=== PATIENT | female | born 1960 | race Caucasian/White ===

== ENCOUNTER 2019-02-27 17:20 | Emergency (ER) | payer OTHER ==
[~2019-02-27] VITALS: Ht 162.6 cm; Wt 65.8 kg
--- NOTE | ~2019-02-27 | EMS ---
[address] [address] EMS Patient Care Report Name: NAHID MAY Room #: DEP HOWIE Jacob#: [id number] Admission: 02/27/19 Attend Phys: Discharge: 02/27/19 Date of : 56 Report #: [id number] THIS REPORT FOR: //name// Report Transmitted: 02/27/2019 22:51 EMS Care Summary [facility] Incident [id number] @ 02/27/2019 16:30 Incident Location [address] [place] [address] Patient NAHID MAY Female, 58 Years 1960 Patient Address [address] [place] [address] Patient History Anxiety Disorder (Panic Attacks),Bipolar II Disorder,Alcohol Abuse, Patient Allergies Codeine, Patient Medications Fluoxetine, Zolpidem, Amitriptyline, Chief Complaint Left upper quadrant pain Disposition Transported No Lights/[place] Reason Breathing Problem Transported To [facility] Narrative Pt found lying supine in an upstairs bed room with an elevated level of anxiety and hyperventilating. Pt states "I have this really tight muscle cramping just under my left rib cage. I think I over did doing house cleaning over the past couple days. The pain is increased whenever I take deep breath and when I try [address] [address] EMS Patient Care Report Name: NAHID MAY Room #: DEP ER Cecil#: [id number] Admission: 02/27/19 Attend Phys: Discharge: 02/27/19 Date of : 56 Report #: [id number] to move around to much. The pain is 10/10 when I take a deep breath and move. If I just lie still and don't breathe to deeply its a 6/10." Pt denies any vomiting but has had a intermittent nausea. Pt was assisted to ambulance cot and secured with seat belts. Pt moved to the ambulance without incident. Alerted hospital on [employer] system homicide squad captain delivered pt with decreased pain and anxiety to ER. Pt was 2 person sheet lifted to Hospital bed and secured with side rails in the upright position. Gave report to RN transferred care and pt to hospital staff. Initial Vitals @16:59P: 98,R: 18,BP: 149/96,Pain: 4/10,GCS: 15,SpO2: 95,Revised Trauma: 12, @16:58P: 99,R: 18,BP: 152/98,GCS: 15,Revised Trauma: 12, @16:39P: 100,R: 32,BP: 157/102,Pain: 10/10,GCS: 15,SpO2: 97,Revised Trauma: 11,[place] Suspected: false @16:50R: 28,BP: 156/101,Pain: 8/10,GCS: 15,Glucose: 100,SpO2: 98,Revised Trauma: 12, @16:45P: 95,R: 28,BP: 156/102,Pain: 8/10,GCS: 15,SpO2: 98,Revised Trauma: 12,[place] Suspected: false Assessments @16:42MENTAL:No Abnormalities,SKIN:No Abnormalities,HEENT:Head/Face: No Abnormalities,Eyes: No Abnormalities,Neck/Airway: No Abnormalities,LUNG SOUNDS:General: No Abnormalities,Left Upper: No Abnormalities,Right Upper: No Abnormalities,Left Lower: No Abnormalities,Right Lower: No Abnormalities,ABDOMEN:General: No Abnormalities,Left Upper: No Abnormalities,Right Upper: No Abnormalities,Left Lower: No Abnormalities,Right Lower: No Abnormalities,PELVIS//GI:No Abnormalities,EXTREMITIES:Left Arm: No Abnormalities,Right Arm: No Abnormalities,Left Leg: No Abnormalities,Right Leg: No Abnormalities,PULSE:NEURO:No Abnormalities, Impression Abdominal Pain Procedures @16:58Saline Lock 10cc (20 ga) Site: Hand-RightResponse: UnchangedSucceeded@16:4512-Lead ECGResponse: UnchangedSucceeded@17:05Fentanyl - 50 Micrograms (mcg) - Intravenous (IV)Response: Improved Timeline 16:29,Call Received 16:29,Psap Call 16:30,Dispatched 16:30,En Route 16:37,On Scene 16:39,At Patient [address] [address] EMS Patient Care Report Name: NAHID MAY Room #: DEP HOWIE Jacob#: [id number] Admission: 02/27/19 Attend Phys: Discharge: 02/27/19 Date of : 56 Report #: [id number] 16:39,BP: 157/102 M,PULSE: 100,RR: 32 R,SPO2: 97 Ox,ETCO2: ,BG: ,PAIN: 10,GCS: 15, 16:45,12-Lead ECG,Response: UnchangedSucceeded, 16:45,BP: 156/102 M,PULSE: 95,RR: 28 R,SPO2: 98 Ox,ETCO2: ,BG: ,PAIN: 8,GCS: 15, 16:50,BP: 156/101 M,PULSE: ,RR: 28 R,SPO2: 98 Ox,ETCO2: ,B,PAIN: 8,GCS: 15, 16:58,Saline Lock 10cc 20 ga Site: Hand-Right,Response: UnchangedSucceeded, 16:58,BP: 152/98 M,PULSE: 99,RR: 18 R,SPO2: Ox,ETCO2: ,BG: ,PAIN: ,GCS: 15, 16:59,BP: 149/96 M,PULSE: 98,RR: 18 R,SPO2: 95 Ox,ETCO2: ,BG: ,PAIN: 4,GCS: 15, 17:05,Fentanyl - 50 Micrograms (mcg) - Intravenous (IV),Response: Improved 17:05,Depart Scene 17:13,At Destination 17:34,Call Closed Disclaimer v1.1 Copyright 2019 [employer] This EMS Care Summary contains data elements from the applicable legal record (which may be displayed differently). It is designed to provide pertinent information for the following purposes: continuity of care, clinical quality, and state data reporting. The complete legal record is available to ED staff and administrators of the receiving hospital in ES's Patient Tracker. All data is provided "as is."
[2019-02-27 18:24] LABS: ABSOLUTE NEUTROPHILS 4.2 thou/uL (1.4-8.2); BASOPHILS 1.2 % (0.0-2.0); EOSINOPHILS 2.1 % (0.0-3.0); HEMATOCRIT 32.7 % (37.0-47.0); HEMOGLOBIN 11.1 gm/dL (12.0-15.0); LYMPHOCYTES 25.8 % (24.0-44.0); MCH 32.3 pg (26.0-34.0); MCHC 34.1 g/dL (28.0-37.0); MCV 94.9 fL (80.0-100.0); MONOCYTES 7.4 % (1.0-8.0); PLATELET COUNT 312 thou/uL (150-400); POLYS 63.5 % (36.0-66.0); RBC 3.45 mil/uL (4.20-5.00); RDW 13.7 % (10.5-14.5); WBC 6.6 thou/uL (4.0-11.0)
[2019-02-27 18:35] LABS: ANION GAP 14 mmol/L (7-16); BUN 14 mg/dL (7-18); CALCIUM 8.4 mg/dL (8.5-10.1); CHLORIDE 108 mmol/L (98-107); CO2 21 mmol/L (21-32); CREATININE 0.9 mg/dL (0.6-1.0); GLUCOSE 98 mg/dL (74-106); POTASSIUM 3.7 mmol/L (3.5-5.1); SODIUM 143 mmol/L (136-145)
[2019-02-27 18:46] LABS: SGOT 21 U/L (15-37); SGPT 18 U/L (30-65); TOTAL BILIRUBIN 0.1 mg/dL (<0.1-1.0); TOTAL PROTEIN 6.6 g/dL (6.4-8.2); TROPONIN-I <0.06 ng/mL (<0.06)
[2019-02-27] MEDS ORDERED: TRAMADOL 50 MG50 MG PO (19:23)
[2019-02-27] MEDS ORDERED: NAPROSYN500 MG PO (19:23)
[2019-02-27 20:05] VITALS: BP 139/81
--- NOTE | 2019-02-28 08:43 | EKG ---
[place] [address] [facility] [place] [address] ELECTROCARDIOGRAM REPORT Name: NAHID MAY Room #: ANDRE Jacob#: [id number] Admission: 02/27/19 Attend Phys: Discharge: 02/27/19 Date of : 56 Report #: [id number] THIS REPORT FOR: //name// [facility] ED Test Date: 2019-02-27 Test Time: 17:59:11 Pat Name: NAHID MAY Department: Room: Gender: F Family Preservation Caseworker: FRANCISCA : 1960 Requested By: Suzi Kapoor Order Number: [id number] MD: Nick Clark Measurements Intervals [place] Rate: 84 P: 75 NH: 149 QRS: 27 QRSD: 90 T: 38 QT: 377 QTc: 446 Interpretive Statements Sinus rhythm Normal tracing No previous ECG available for comparison Electronically Signed On 02-28-2019 8:43:17 CDT by Nick Clark [email or web address] <ELECTRONICALLY SIGNED> By: Nick Clark MD, [facility] 02/28/19 [id number] Nick Clark MD, FACC /EPI
== END 2019-02-27 20:05 | disposition home or self-care (01) ==
LOC: ER 17:20
PROVIDERS: Nurse Practitioner Family
DX: R07.81 Pleurodynia (principal); R11.2 Nausea with vomiting, unspecified; Z88.5 Allergy status to narcotic agent